=== PATIENT | female | born 1990 | race African-American/Black ===

== ENCOUNTER 2017-11-23 13:01 | Inpatient (IN) | payer OTHER ==
[2017-11-23] MEDS ORDERED: METHYLERGONOVINE MALEATE 0.2 MG/1 ML AMP IM PRN ×2 (13:27→13:58)
[2017-11-23] MEDS ORDERED: WITCH HAZEL 50% (TUCKS) 40 PAD/JAR PAD TP PRN ×2 (13:27→13:58)
[2017-11-23] MEDS ORDERED: BISACODYL 10 MG SUPP.RECT RC PRN ×2 (13:27→13:58)
[2017-11-23] MEDS ORDERED: ACETAMINOPHEN 325 MG TABLET (FP) PO PRN (13:27)
[2017-11-23] MEDS ORDERED: oxyCODONE HCL 5 MG TABLET PO PRN (13:27)
[2017-11-23] MEDS ORDERED: BENZOCAINE 28 GM HEMORRHOIDAL OINTMENT TP PRN ×2 (13:27→13:58)
[2017-11-23] MEDS ORDERED: IBUPROFEN 600 MG TABLET (FP) PO PRN (13:27)
[2017-11-23] MEDS ORDERED: BENZOCAINE 20% 57 GM BOTTLE TP PRN ×2 (13:27→13:58)
[2017-11-23] MEDS ORDERED: D5W-LR W/ 20 UNITS OXYTOCIN 1,000 ML IV SCH (13:30)
[2017-11-23] MEDS: ACETAMINOPHEN 325 MG TABLET (FP) PO PRN ×2 (14:00→21:45)
[2017-11-23] MEDS: oxyCODONE HCL 5 MG TABLET PO PRN ×2 (14:00→23:21)
[2017-11-23 14:38] VITALS: BMI 22.1
[2017-11-23 14:53] LABS: ANION GAP 10 (8-16); BLOOD UREA NITROGEN 9 mg/dL (7-18); CALCIUM 9.4 mg/dL (8.5-10.1); CHLORIDE 103 mmol/L (98-107); CO2 25 mmol/L (21-32); CREATININE 0.7 mg/dL (0.55-1.02); GLUCOSE,RANDOM 61 mg/dL (74-106); POTASSIUM 4.3 mmol/L (3.5-5.1); SGOT/AST 23 U/L (15-37); SGPT/ALT 18 U/L (12-78); SODIUM 138 mmol/L (136-145); URIC ACID 4.4 mg/dL (2.6-7.2)
[2017-11-23 14:56] LABS: INR 0.94 (0.82-1.09); PROTHROMBIN TIME (PATIENT) 10.6 SEC (9.7-13.0)
[2017-11-23 14:59] LABS: ACTIVATED PTT 28.4 SECONDS (26.9-34.4)
[2017-11-23 15:07] LABS: BASO % 0.4 % (0-2.0); HEMATOCRIT 41.4 % (32.4-45.2); LYMPH % 15.7 % (8-40); MCH 33.4 pg (25.7-33.7); MCHC 33.8 g/dl (32.0-36.0); MEAN CELL VOLUME 98.8 fl (80-96); MEAN PLT VOLUME 10.4 fl (7.5-11.1); MONO % 5.8 % (3.8-10.2); NEUT % 77.1 % (42.8-82.8); PLATELET COUNT 153 K/MM3 (134-434); RBC 4.19 M/mm3 (3.60-5.2); RDW 13.1 % (11.6-15.6); WHITE BLOOD COUNT 8.4 K/mm3 (4.0-10.0)
[2017-11-23 15:25] LABS: RETICULOCYTES 2.05 % (0.5-1.5)
--- NOTE | 2017-11-23 19:42 | HP ---
Past Medical History - Primary Care Physician PCP:: Josephine Mckeon - Admission Chief Complaint: 27 yrs , 39.3 weeks pregnacy delievered in the clinic , transferred to L&D by [facility] with History of Present Illness: Pt had onset of irregular Uc since 8.00 AM , , strong since 11.30 Am, while she started walking to the [address] [place] [address] from home she was examine in the clinic 12.00 noon fully dilated , srom at 12.07 pm, , Baby girl at 12.16Pm , Placenta delivered at12.24 pm . was taken care by Dr Ryan Gasca ebl 200 ml approx. 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 Weeks Gestation by Dates: 39.1 ...EDC by Dates: 11/10/17 ...EDC by Sono: 11/27/17 Heme/Onc: Yes: Anemia Infectious Disease: No: HIV Psych: No: Addictions, Anxiety, Bipolar, Depression - Past Surgical History Past Surgical History: Yes: None Hx Myomectomy: No Hx Transabdominal Cerclage: No - Smoking History Smoking history: Never smoked Have you smoked in the past 12 months: No - Alcohol/Substance Use Hx Alcohol Use: No History of Substance Use: reports: None Home Medications - Allergies Allergies/Adverse Reactions: Allergies Allergy/AdvReac Type Severity Reaction Status Date / Time amoxicillin [Amoxicillin] Allergy Intermediate Hives Verified 11/23/17 14:56 mushrooms Allergy Severe Difficulty Uncoded 11/23/17 14:56 Breathing - Home Medications Home Medications: Ambulatory Orders Pnv Comb.no58/Iron Bisgly/FA [ Capsule] 1 each PO DAILY #1 capsule 07/29 Physical Exam - Maternity Vital Signs: Vital Signs Temperature 97.7 F 11/23/17 18:00 Pulse Rate 74 11/23/17 18:00 Respiratory Rate 18 11/23/17 18:00 Blood Pressure 134/77 11/23/17 18:00 O2 Sat by Pulse Oximetry (%) 99 11/23/17 14:45 Constitutional: Yes: Well Nourished Eyes: Yes: WNL HENT: Yes: WNL Neck: Yes: WNL Cardiovascular: Yes: WNL Lungs: Clear to auscultation Breast(s): Yes: WNL, Other (declines to BF) - Abdominal Exam/OB Fundal Height: 18 (s/p vaginal deliver, ut firm below umblicus , cx iitact , vagina intact, 1st degree perineal laceration sutured with chr catgut , pr exam mucosa & sphincter intact ) - Vaginal Exam/OB Vaginal Bleediing: Yes (lochia moderate) - Physical Exam Musculoskeletal: Yes: WNL Extremities: Yes: WNL. No: Calf Tenderness Edema: LLE: Trace, RLE: Trace Integumentary: Yes: Tattoos, Other (nipple rings & clitoral ring) Deep Tendon Reflex Grade: Normal +2 ...Motor Strength: WNL Psychiatric: Yes: WNL, Alert, Oriented - Labs Lab Results: CBC, BMP 11/23/17 14:20 11/23/17 14:30 Laboratory Tests 11/23/17 14:20 Blood Type A POSITIVE Antibody Screen Negative Problem List - Problems (1) Vaginal delivery Code(s): O80 - ENCOUNTER FOR FULL-TERM UNCOMPLICATED DELIVERY (2) First degree laceration of perineum during delivery, Code(s): O70.0 - FIRST DEGREE PERINEAL LACERATION DURING DELIVERY Assessment/Plan 27 yrs , s/p at clinic . 1st degree laceration sutured Plan pp care
--- NOTE | 2017-11-23 20:01 | PN ---
Delivery - Delivery Vaginal Delivery: No Problems, Spontaneous (delivered in the clinic by Dr samaniego on sterile field on examining table . baby girl Jonn position, immediate oral & nasal suction was done cord was clamped cut, cord blood was drawn . placenta was deiivered completley with membranes . Ut was firm. ebl witnessed in the clinic was [address] Ryan Gasca wool shearer attended the baby . assigne 9/9. pp vs/stable . /Mother & infant transferred to L&D at [facility] by [facility]) Type of Anesthesia: Local Episiotomy/Laceration: 1st degree (laceration sutured by Dr root in the hosp under l/a with chr catgut #2/0) EBL (cc): 350 Delivery, Single - Stages of Labor Date 1st Stage Initiatied: 11/23/17 Time 1st Stage Initiated: 11:30 Date 2nd Stage Initiated: 11/23/17 Time 2nd Stage Initiated: 12:00 Date of Delivery: 11/23/17 Time of Delivery: 12:16 Time Placenta Delivered: 12:24 Placenta: Yes: Spontaneous, Uterine Exploration - Condition of Elevator Dispatcher/Ad Operations Associate Present: No Gender: Female Weight: 7 lb 5 oz Position: Right, OA Total Hours ROM (Hrs/Mins): 17mins - Home Delivery on Admit Total Score: 10 - Feeding Plan Initial Plan: Elected not to breastfeed exclusively throughout hospitalization Remarks - Remarks Remarks: 27 yrs 39.3 weeks , gbs neg . pnc at , [facility] intrapartum course uneventful . pt was given inj Methergine in the hosp
[2017-11-23] MEDS: IBUPROFEN 600 MG TABLET (FP) PO PRN (21:45)
[2017-11-23] MEDS ORDERED: IBUPROFEN 600 MG TABLET (FP) PO ONE (21:46)
[2017-11-23] MEDS ORDERED: ACETAMINOPHEN 325 MG TABLET (FP) ONE (21:46)
[2017-11-23] MEDS ORDERED: FERROUS SO4 325 MG TABLET (FP) PO SCH (22:00)
[2017-11-23] MEDS ORDERED: oxyCODONE HCL 5 MG TABLET ONE (23:10)
[2017-11-23] MEDS: FERROUS SO4 325 MG TABLET (FP) PO SCH (23:24)
[2017-11-23] MEDS ORDERED: diphenhydrAMINE HCL 25 MG CAPSULE (FP) PO ONE ×2 (23:56→23:57)
[2017-11-24] MEDS ORDERED: diphenhydrAMINE HCL 25 MG CAPSULE (FP) PO ONE (00:15)
[2017-11-24] MEDS ORDERED: ACETAMINOPHEN 325 MG TABLET (FP) ONE (06:05)
[2017-11-24] MEDS ORDERED: IBUPROFEN 600 MG TABLET (FP) PO ONE (06:05)
[2017-11-24] MEDS: ACETAMINOPHEN 325 MG TABLET (FP) PO PRN ×3 (06:10→20:58)
[2017-11-24] MEDS: IBUPROFEN 600 MG TABLET (FP) PO PRN ×3 (06:10→20:58)
[2017-11-24 06:56] LABS: BASO % 0.5 % (0-2.0); EOS % 1.4 % (0-4.5); HEMATOCRIT 38.1 % (32.4-45.2); LYMPH % 18.7 % (8-40); MCH 33.6 pg (25.7-33.7); MCHC 34.1 g/dl (32.0-36.0); MEAN CELL VOLUME 98.5 fl (80-96); MEAN PLT VOLUME 9.9 fl (7.5-11.1); MONO % 7.2 % (3.8-10.2); NEUT % 72.2 % (42.8-82.8); PLATELET COUNT 155 K/MM3 (134-434); RBC 3.87 M/mm3 (3.60-5.2); WHITE BLOOD COUNT 13.2 K/mm3 (4.0-10.0)
--- NOTE | 2017-11-24 08:21 | PN ---
Post Progress Note - Subjective Subjective: c/o cramps , pain scale 4-8 c/o perineal pain in area of sutures c/o eyes swollen , tongue swollen after 2nd tome oxycodone taken pt felt better after taking Benadryl po Post Day: 1 Type of Delivery: Vital Signs: Vital Signs Temperature 98.1 F 11/24/17 06:00 Pulse Rate 65 11/24/17 06:00 Respiratory Rate 18 11/24/17 06:00 Blood Pressure 119/81 11/24/17 06:00 O2 Sat by Pulse Oximetry (%) 99 11/23/17 14:45 Breast Exam: Yes: Soft, Other (Bottle feeding ). No: Engorged Uterus: Yes: Fundus Firm, Fundus below umbilicus, Non-tender Lochia: Yes: Rubra Lochia, amount: Moderate Extremities: Yes: Calves non-tender Perineum: Yes: Laceration (perineum intact ,with americaine spray feels better ) Activity: Ambulating - Labs Labs: CBC WBC 13.2 K/mm3 (4.0-10.0) H D 11/24/17 06:34 RBC 3.87 M/mm3 (3.60-5.2) 11/24/17 06:34 Hgb 13.0 GM/dL (10.7-15.3) 11/24/17 06:34 Hct 38.1 % (32.4-45.2) 11/24/17 06:34 MCV 98.5 fl (80-96) H 11/24/17 06:34 MCH 33.6 pg (25.7-33.7) 11/24/17 06:34 MCHC 34.1 g/dl (32.0-36.0) 11/24/17 06:34 RDW 13.0 % (11.6-15.6) 11/24/17 06:34 Plt Count 155 K/MM3 (134-434) 11/24/17 06:34 MPV 9.9 fl (7.5-11.1) 11/24/17 06:34 Neutrophils % 72.2 % (42.8-82.8) 11/24/17 06:34 Lymphocytes % 18.7 % (8-40) 11/24/17 06:34 Monocytes % 7.2 % (3.8-10.2) 11/24/17 06:34 Eosinophils % 1.4 % (0-4.5) 11/24/17 06:34 Basophils % 0.5 % (0-2.0) 11/24/17 06:34 Retic Count 2.05 % (0.5-1.5) H 11/23/17 14:20 Haptoglobin 23 mg/dL (34-200) L 11/23/17 14:30 Problem List - Problems (1) Vaginal delivery Code(s): O80 - ENCOUNTER FOR FULL-TERM UNCOMPLICATED DELIVERY (2) First degree laceration of perineum during delivery, Code(s): O70.0 - FIRST DEGREE PERINEAL LACERATION DURING DELIVERY Assessment/Plan stable s/p vag delivery discharge tomorrow
[2017-11-24] MEDS ORDERED: DIPHTH,PERTUSS(ACELL),TET 0.5 ML DISP.SYRIN IM ONE (10:00)
[2017-11-24] MEDS ORDERED: PRENATAL VITAMINS W/ FOLIC ACID TABLET (FP) PO SCH (10:00)
[2017-11-24] MEDS ORDERED: FLU VACC QS2017-18 36MOS UP/PF 60 MCG/0.5 ML SYRINGE IM ONE (10:00)
[2017-11-24] MEDS ORDERED: FLU VACCINE QUAD 60 MCG/0.5 ML (MDV 17-18) IM ONE (10:00)
[2017-11-24] MEDS: PRENATAL VITAMINS W/ FOLIC ACID TABLET (FP) PO SCH (10:00)
[2017-11-24] MEDS: FERROUS SO4 325 MG TABLET (FP) PO SCH ×3 (10:00→23:54)
[2017-11-24] MEDS ORDERED: SENNOSIDES/DOCUSATE COMBO (SENNA PLUS) TABLET (UD) PO PRN ×2 (22:00)
[2017-11-25] MEDS: IBUPROFEN 600 MG TABLET (FP) PO PRN ×2 (02:34→09:00)
[2017-11-25] MEDS: ACETAMINOPHEN 325 MG TABLET (FP) PO PRN ×2 (02:34→08:59)
[2017-11-25] MEDS: PRENATAL VITAMINS W/ FOLIC ACID TABLET (FP) PO SCH (09:00)
[2017-11-25] MEDS: FERROUS SO4 325 MG TABLET (FP) PO SCH (09:00)
--- NOTE | 2017-11-25 13:12 | DS ---
Physical Exam-SUPERVISOR RESEARCH KENNEL Vital Signs: Vital Signs Temperature 98.1 F 11/24/17 21:55 Pulse Rate 86 11/24/17 21:55 Respiratory Rate 18 11/24/17 21:55 Blood Pressure 128/82 11/24/17 21:55 O2 Sat by Pulse Oximetry (%) 99 11/24/17 09:00 Constitutional: Yes: Well Nourished Eyes: Yes: WNL HENT: Yes: WNL Neck: Yes: WNL Cardiovascular: Yes: WNL Respiratory: Yes: WNL Gastrointestinal: Yes: WNL ...Rectal Exam: Yes: WNL Renal/: Yes: WNL ....Post : Yes: Uterus firm, Uterus non-tender, Moderate lochia rubra ( perineum intact) Breast(s): Yes: WNL (bottle feeding) Edema: No Integumentary: Yes: Tattoos, Other (pierced rings nipples & clitoral) Neurological: Yes: WNL, Alert, Oriented ...Motor Strength: WNL Psychiatric: Yes: WNL Labs: CBC, BMP 11/24/17 06:34 11/23/17 14:30 Delivery - Delivery Vaginal Delivery: No Problems, Spontaneous (delivered in the clinic by Dr samaniego on sterile field on examining table . baby girl Jonn position, immediate oral & nasal suction was done cord was clamped cut, cord blood was drawn . placenta was deiivered completley with membranes . Ut was firm. ebl witnessed in the clinic was [address] Ryan Gasca clinical nursing director attended the baby . assigne 9/9. pp vs/stable . /Mother & transferred to L&D at [facility] by [facility]) Type of Anesthesia: Local Episiotomy/Laceration: 1st degree (laceration sutured by Dr root in the hosp under l/a with chr catgut #2/0) EBL (cc): 350 Delivery, Single - Stages of Labor Date 1st Stage Initiatied: 11/23/17 Time 1st Stage Initiated: 11:30 Date 2nd Stage Initiated: 11/23/17 Time 2nd Stage Initiated: 12:00 Date of Delivery: 11/23/17 Time of Delivery: 12:16 Time Placenta Delivered: 12:24 Placenta: Yes: Spontaneous, Uterine Exploration - Condition of Infant Information Security Engineer/Back Feeder [employer] Layup Line Present: No Gender: Female Weight: 7 lb 5 oz Position: Right, OA Total Hours ROM (Hrs/Mins): 17mins - Home Delivery on Admit Total Score: 10 - Feeding Plan Initial Plan: Elected not to breastfeed exclusively throughout hospitalization Remarks - Remarks Remarks: 27 yrs 39.3 weeks , gbs neg . pnc at , [facility] intrapartum course uneventful . pt was given inj Methergine in the hosp pp course uneventful Discharge Summary Reason For Visit: LABOR Current Active Problems First degree laceration of perineum during delivery, (Acute) Vaginal delivery (Acute) Condition: Stable - Instructions Diet, Activity, Other Instructions: Post Instructions DIET: Continue good diet high in protein, calcium, and iron rich foods. Drink at least eight (8) glasses of water daily in addition to other fluids. ___ Regular diet _ MEDICATIONS: Continue vitamins and iron as previously directed. Motrin and Tylenol may be taken for minor discomfort. ACTIVITY: Mild to moderate exercise may be started in two (2) weeks. Take frequent rest periods. Resume normal activity after six (6) week check up. WOUND CARE OF OPERATIVE SITE: Continue use of perineal bottle until vaginal discharge stops. Keep area clean. Shower daily. Keep abdominal wound dry. Report any drainage or redness to physician. Tub baths, tampons and douches are not permitted for 6 weeks. ____ Breast feeding ___ Bottle feeding BREAST CARE: (For those that are not breast feeding): If engorgement occurs: Wear tight fitting bra. Take Tylenol or Motrin for pain. Apply cold packs (ice in bags to each breast ) FAMILY PLANNING: There are many control alternatives to pursue and they should be discussed at your first office visit. You may resume sexual activity after your six (6) week check up. (Remember, breast feeding is not a contraceptive) NEXT PHYSICIAN APPOINTMENT: Be certain to call for a six (6) week appointment, unless otherwise directed. Call Clinic or got to Emergency Dept if you have any of the following: Heavy vaginal bleeding Painful urination Leg pain Unusual odor noted to vaginal bleeding High fever Red streaking noted on breast Referrals: Josephine Samaniego MD [Staff Physician] - Disposition: HOME - Home Medications Comprehensive Discharge Medication List: Ambulatory Orders Pnv Comb.no58/Iron Bisgly/FA [ Capsule] 1 each PO DAILY #1 capsule 07/29 Acetaminophen [Tylenol .Regular Strength -] 650 mg PO Q3H PRN tablet 11/24/17 Acetaminophen [Tylenol .Regular Strength -] 650 mg PO Q3H PRN tablet 11/24/17 Benzocaine Ointment [Americaine Ointment -] 1 applic TP PRN PRN tube 11/24/17 Benzocaine Ointment [Americaine Ointment -] 1 applic TP PRN PRN tube 11/24/17 Benzocaine [Americaine 20% [place] -] 1 spray TP PRN PRN bottle 11/24/17 Benzocaine [Americaine 20% [place] -] 1 spray TP PRN PRN bottle 11/24/17 Ibuprofen [Motrin -] 200 mg PO Q4H PRN tablet 11/24/17 Ibuprofen [Motrin -] 200 mg PO Q4H PRN tablet 11/24/17 Vitamins (Sjr) - 1 tab PO DAILY tablet 11/24/17 Vitamins (Sjr) - 1 tab PO DAILY tablet 11/24/17 Witch Pura 50% (Tucks) [Tucks Pads -] 1 pad TP PRN PRN pad 11/24/17 Witch Pura 50% (Tucks) [Tucks Pads -] 1 pad TP PRN PRN pad 11/24/17
[2017-11-25 14:55] VITALS: BP 112/68; PULSE 73; TEMP 98.2
== END 2017-11-25 13:00 | disposition home or self-care (01) | DRG 560 ==
LOC: JLDR 13:01 → J3W 11-24 13:17
PROVIDERS: ADMIT Obstetrics & Gynecology; ATTEND Obstetrics & Gynecology
PROC: 10E0XZZ Delivery of Products of Conception, External Approach (ICD-10-PCS; principal; 2017-11-23)
PROC: 0W8NXZZ Division of Female Perineum, External Approach (ICD-10-PCS; 2017-11-23)
PROC: 0HQ9XZZ Repair Perineum Skin, External Approach (ICD-10-PCS; 2017-11-23)
DX: O70.0 First degree perineal laceration during delivery (principal); Z3A.39 39 weeks gestation of pregnancy; Z37.0 Single live birth
CPT/HCPCS: 36415; 59409; 80048; 83010; 84450; 84460; 84550; 85025; 85044; 85610; 85730; 86593; 86850; 86900; 86901; 90686; 90715; G0008

== ENCOUNTER 2023-12-15 11:45 | Inpatient (IN) | payer OTHER ==
[2023-12-15 12:33] VITALS: BMI 25.8
[2023-12-15 12:58] LABS: BASO % 0.5 % (0-2.0); EOS % 0.9 % (0-4.5); HEMATOCRIT 36.1 % (32.4-45.2); HEMOGLOBIN 12.2 GM/dL (10.7-15.3); LYMPH % 25.1 % (8-40); MCH 32.7 pg (25.7-33.7); MCHC 33.8 g/dl (32.0-36.0); MEAN CELL VOLUME 96.6 fl (80-96); MEAN PLT VOLUME 8.8 fl (7.5-11.1); MONO % 8.2 % (3.8-10.2); NEUT % 65.3 % (42.8-82.8); PLATELET COUNT 183 10^3/uL (134-434); RBC 3.73 M/mm3 (3.60-5.2); RDW 12.9 % (11.6-15.6); WHITE BLOOD COUNT 6.4 K/mm3 (4.0-10.0)
[2023-12-15] MEDS: DEXTROSE 5%-LACTATED RINGERS 1,000 ML IV SCH (13:00)
[2023-12-15 13:04] LABS: INR 0.98 (0.83-1.09); PROTHROMBIN TIME (PATIENT) 11.1 SEC (9.7-13.0)
[2023-12-15 13:07] LABS: ACTIVATED PTT 28.7 SECONDS (25.2-36.5)
[2023-12-15 13:15] LABS: POTASSIUM 3.6 mmol/L (3.5-5.1)
[2023-12-15 13:16] LABS: CALCIUM 9.6 mg/dL (8.5-10.1)
[2023-12-15 13:17] LABS: BLOOD UREA NITROGEN 7.8 mg/dL (7-18)
[2023-12-15 13:20] LABS: CREATININE 0.5 mg/dL (0.55-1.3)
[2023-12-15] MEDS: DINOPROSTONE 10 MG VAGINAL SUPPOSITORY VG STA (13:30)
[2023-12-15] MEDS ORDERED: PROMETHAZINE HCL 25 MG/1 ML VIAL ONE (23:36)
[2023-12-15] MEDS ORDERED: BUTORPHANOL TARTRATE 2 MG/ML VIAL ONE (23:36)
[2023-12-15] MEDS: PROMETHAZINE HCL 25 MG/1 ML VIAL IVPB ONE (23:58)
[2023-12-15] MEDS: BUTORPHANOL TARTRATE 1 MG/ML VIAL IVPB ONE (23:58)
[2023-12-16] MEDS: DINOPROSTONE 10 MG VAGINAL SUPPOSITORY VG STA
[2023-12-16] MEDS ORDERED: BUTORPHANOL TARTRATE 2 MG/ML VIAL ONE (03:48)
[2023-12-16] MEDS: BUTORPHANOL TARTRATE 1 MG/ML VIAL IVPB ONE (04:00)
[2023-12-16] MEDS ORDERED: FENTANYL/BUPIVACAINE/NS/PF - PCEA - 50 ML DISP.SYRIN EP ONE (08:09)
[2023-12-16] MEDS ORDERED: NALOXONE HCL 0.4 MG/ML VIAL IVPUSH PRN (08:27)
[2023-12-16] MEDS ORDERED: BUPIVACAINE HCL/PF 0.25% (2.5MG/ML) 10 ML VIAL ONE (08:28)
[2023-12-16] MEDS: FENTANYL/BUPIVACAINE/NS/PF - PCEA - 50 ML DISP.SYRIN EP SCH (08:45)
[2023-12-16] MEDS ORDERED: OXYTOCIN 30 UNITS in 0.9% NS 30 UNIT/500 ML INFUS.BAG IVPB ONE (09:43)
[2023-12-16] MEDS: ELECTROLYTE-148 SOLN 1,000 ML IV SCH (09:45)
[2023-12-16] MEDS: OXYTOCIN 30 UNITS in 0.9% NS 30 UNIT/500 ML INFUS.BAG IVPB SCH (09:45)
[2023-12-16] MEDS ORDERED: LIDOCAINE HCL 1% PRESERVATIVE FREE - 30ML VIAL ONE (10:28)
[2023-12-16] MEDS ORDERED: OXYTOCIN 20 UNITS in 0.9% NS 20 UNIT/1,000 ML INFUS.BAG IV ONE (10:28)
[2023-12-16 10:46] VITALS: RESP 18
[2023-12-16] MEDS ORDERED: BENZOCAINE 20% 57 GM BOTTLE TP PRN (11:35)
[2023-12-16] MEDS ORDERED: METHYLERGONOVINE MALEATE 0.2 MG/1 ML AMP IM PRN (11:35)
[2023-12-16] MEDS ORDERED: WITCH HAZEL 50% (TUCKS) 40 PAD/JAR PAD TP PRN (11:35)
[2023-12-16] MEDS ORDERED: BISACODYL 10 MG SUPP.RECT RC PRN (11:35)
[2023-12-16] MEDS ORDERED: BENZOCAINE 28 GM HEMORRHOIDAL OINTMENT TP PRN (11:35)
[2023-12-16] MEDS: OXYTOCIN 20 UNITS in 0.9% NS 20 UNIT/1,000 ML INFUS.BAG IV SCH (11:45)
[2023-12-16 11:47] LABS: CORD BASE EXCESS -3.8 mmol/L (0-2); CORD HCO3 21.8 mmHg (20-29); CORD PCO2 41.9 mmHg (30-78); CORD pH 7.335 (7.14-7.44)
[2023-12-16 11:50] LABS: CORD BASE EXCESS -5.3 mmol/L (0-2); CORD HCO3 25.2 mmHg (20-29); CORD PCO2 71.8 mmHg (30-78); CORD pH 7.163 (7.14-7.44)
[2023-12-16] MEDS ORDERED: IBUPROFEN 600 MG TABLET (FP) PO ONE (13:24)
[2023-12-16] MEDS: IBUPROFEN 600 MG TABLET (FP) PO PRN (13:25)
[2023-12-16] MEDS: diphenhydrAMINE HCL 25 MG CAPSULE (FP) PO ONE (16:00)
[2023-12-16] MEDS: ACETAMINOPHEN 325 MG TABLET (FP) PO PRN (17:08)
[2023-12-16] MEDS: oxyCODONE HCL 5 MG TABLET PO PRN (21:16)
[2023-12-17 06:11] LABS: BASO % 0.4 % (0-2.0); EOS % 0.7 % (0-4.5); HEMATOCRIT 37.5 % (32.4-45.2); HEMOGLOBIN 12.5 GM/dL (10.7-15.3); LYMPH % 20.4 % (8-40); MCH 32.5 pg (25.7-33.7); MCHC 33.3 g/dl (32.0-36.0); MEAN CELL VOLUME 97.5 fl (80-96); MEAN PLT VOLUME 8.7 fl (7.5-11.1); MONO % 5.8 % (3.8-10.2); NEUT % 72.7 % (42.8-82.8); PLATELET COUNT 178 10^3/uL (134-434); RBC 3.85 M/mm3 (3.60-5.2)
[2023-12-17] MEDS: PNEUMOC 20-VAL CONJ-DIP CRM/PF 0.5 ML SYRINGE IM ONE (10:55)
[2023-12-17] MEDS: SENNOSIDES/DOCUSATE COMBO (SENNA PLUS) TABLET (UD) PO PRN (21:44)
[2023-12-18 10:18] VITALS: BP 121/78; PULSE 80; TEMP 98.1
== END 2023-12-18 12:45 | disposition home or self-care (01) | DRG 560 ==
LOC: JLDR 11:45 → J3W 12-16 14:00
PROVIDERS: ADMIT Obstetrics & Gynecology; ATTEND Obstetrics & Gynecology
PROC: 10E0XZZ Delivery of Products of Conception, External Approach (ICD-10-PCS; principal; 2023-12-16)
DX: O10.92 Unspecified pre-existing hypertension complicating childbirth (principal); Z3A.39 39 weeks gestation of pregnancy; Z37.0 Single live birth
CPT/HCPCS: 36415; 36600; 59409; 80048; 82803; 85025; 85610; 85730; 86780; 86850; 86900; 86901; 90677; G0009